=== PATIENT | female | born 1990 | race Caucasian/White ===

== ENCOUNTER 2017-01-09 12:13 | Emergency (ER) | payer BC ==
[~2017-01-09] VITALS: Ht 162.6 cm; Wt 60.0 kg
[2017-01-09 12:13] VITALS: BP 109/52; PULSE 75; RESP 20; TEMP 98; O2SAT 98
[2017-01-09] MEDS ORDERED: SODIUM CHLORIDE 0.9% FLUSH 10 ML FLUSH IV FLUSH PRN (12:45)
[2017-01-09] MEDS ORDERED: ONDANSETRON HCL 4 MG/2 ML VIAL IVP ONE (12:45)
[2017-01-09] MEDS ORDERED: KETOROLAC TROMETHAMINE 30 MG/ML (IVP) VIAL IVP ONE (12:45)
[2017-01-09] MEDS ORDERED: SODIUM CHLOR 0.9% 1000 ML INJ 1,000 ML IV SCH (12:45)
[2017-01-09] MEDS ORDERED: ONDANSETRON ODT 4 MG TAB PO ONE (13:30)
[2017-01-09] MEDS ORDERED: NAPROXEN 500 MG TAB PO ONE (13:30)
[2017-01-09 13:42] LABS: AUTOMATED NEUTROPHIL # 3.9 TH/MM3 (1.8-7.7); BASOPHIL % 0.5 % (0.0-2.0); EOSINOPHIL # 0.1 TH/MM3 (0-0.4); HEMO FLAGS DIFF FINAL; LYMPHOCYTE # 2.4 TH/MM3 (1.0-4.8); MEAN CELL VOLUME 88.6 FL (80.0-100.0); MEAN CORPUSCULAR HEMOGLOBIN 28.9 PG (27.0-34.0); MEAN CORPUSCULAR HGB CONC 32.6 % (32.0-36.0); MONO % 6.9 % (0.0-8.0); NEUT % 56.6 % (16.0-70.0); PLATELET COUNT 220 TH/MM3 (150-450); RED BLOOD COUNT 4.06 MIL/MM3 (4.00-5.30); RED CELL DISTRIBUTION WIDTH 12.7 % (11.6-17.2); WHITE BLOOD COUNT 6.8 TH/MM3 (4.0-11.0)
--- NOTE | 2017-01-09 13:45 | PD ---
HPI Chief Complaint: Abdominal Pain Time Seen by Provider: 12:24 Travel History International Travel<30 days: No Contact w/Intl Traveler<30days: No Traveled to known affect area: No History of Present Illness HPI To 26-year-old woman who presents to the emergency department complaining of abdominal pain. She reports that she has right sided abdominal pain started abruptly is been ongoing for the past several days. Worse today. She's had nausea vomiting weakness with it. I further discussion it sounds like she's had abdominal pain bad enough her to come to the emergency room about once a month or so for the past couple years. She had multiple diagnoses in the past including endometriosis which she's had laser surgery, pain from her IUD, as well as other pains that have not been figured out. She states this pain is different than all the other times she's had pain in the past. She denies any urinary symptoms. No fevers or chills. She does feel very weak and nauseous. She is worried she may have appendicitis or kidney stones. She states her IUD helped a lot with her endometriosis but then had it taken out due to abdominal pain. She's had about for the past year or so. She sexually active one male partner. Active. History Past Medical History Medical History: Denies Significant Hx Tetanus Vaccination: > 5 Years Influenza Vaccination: No LMP: 01/05/17 Social History Alcohol Use: No Tobacco Use: No Allergies-Medications (Allergen,Severity, Reaction): Coded Allergies: No Known Allergies (Unverified , 01/09/17) Reported Meds & Prescriptions Reported Meds & Active Scripts Active No Active Prescriptions or Reported Medications Review of Systems Except as stated in HPI: all other systems reviewed are Neg Physical Exam Narrative GENERAL: 26 year-old woman, sad and tearful, no acute distress. SKIN: Focused skin assessment warm/dry. HEAD: Atraumatic. Normocephalic. EYES: Pupils equal and round. No scleral icterus. No injection or drainage. ENT: No nasal bleeding or discharge. Mucous membranes pink and moist. NECK: Trachea midline. No JVD. CARDIOVASCULAR: Regular rate and rhythm. No murmur appreciated. RESPIRATORY: No accessory muscle use. Clear to auscultation. Breath sounds equal bilaterally. GASTROINTESTINAL: Abdomen flat and soft. No significant tenderness. MUSCULOSKELETAL: No obvious deformities. Data Data Last Documented VS Vital Signs Date Time Temp Pulse Resp B/P Pulse Ox O2 Delivery O2 Flow Rate FiO2 01/09/17 12:37 18 01/09/17 12:13 98.0 75 109/52 98 Room Air Orders Complete Blood Count With Diff (01/09/17 12:45) Comprehensive Metabolic Panel (01/09/17 12:45) Lipase (01/09/17 12:45) Urinalysis - C+S If Indicated (01/09/17 12:45) Iv Access Insert/Monitor (01/09/17 12:45) Ecg Monitoring (01/09/17 12:45) Oximetry (01/09/17 12:45) Ondansetron Inj (Zofran Inj) (01/09/17 12:45) Sodium Chlor 0.9% 1000 Ml Inj (Ns 1000 M (01/09/17 12:45) Sodium Chloride 0.9% Flush (Ns Flush) (01/09/17 12:45) Ketorolac Inj (Toradol Inj) (01/09/17 12:45) Ed Urine Pregnancytest Poc (01/09/17 12:45) Ondansetron Odt (Zofran Odt) (01/09/17 13:30) Naproxen (Naprosyn) (01/09/17 13:30) Labs Laboratory Tests Test 01/09/17 13:20 White Blood Count 6.8 TH/MM3 Red Blood Count 4.06 MIL/MM3 Hemoglobin 11.7 GM/DL Hematocrit 36.0 % Mean Corpuscular Volume 88.6 FL Mean Corpuscular Hemoglobin 28.9 PG Mean Corpuscular Hemoglobin 32.6 % Concent Red Cell Distribution Width 12.7 % Platelet Count 220 TH/MM3 Mean Platelet Volume 7.7 FL Neutrophils (%) (Auto) 56.6 % Lymphocytes (%) (Auto) 35.0 % Monocytes (%) (Auto) 6.9 % Eosinophils (%) (Auto) 1.0 % Basophils (%) (Auto) 0.5 % Neutrophils # (Auto) 3.9 TH/MM3 Lymphocytes # (Auto) 2.4 TH/MM3 Monocytes # (Auto) 0.5 TH/MM3 Eosinophils # (Auto) 0.1 TH/MM3 Basophils # (Auto) 0.0 TH/MM3 CBC Comment DIFF FINAL Differential Comment Sodium Level 137 MEQ/L Potassium Level 3.6 MEQ/L Chloride Level 105 MEQ/L Carbon Dioxide Level 25.3 MEQ/L Anion Gap 7 MEQ/L Blood Urea Nitrogen 10 MG/DL Creatinine 0.92 MG/DL Estimat Glomerular Filtration 74 ML/MIN Rate Random Glucose 82 MG/DL Calcium Level 9.2 MG/DL Total Bilirubin 0.2 MG/DL Aspartate Amino Transf 13 U/L (AST/SGOT) Alanine Aminotransferase 18 U/L (ALT/SGPT) Alkaline Phosphatase 45 U/L Total Protein 7.9 GM/DL Albumin 4.1 GM/DL Lipase 159 U/L [facility] Medical Decision Making Medical Screen Exam Complete: Yes Emergency Medical Condition: Yes Interpretation(s) LABS: CBC is unremarkable CMP unremarkable Lipase normal Differential Diagnosis Acute on chronic abdominal pain, abdominal migraine, endometriosis, appendicitis , kidney stones, other Narrative Course Medical decision making the parents 26 year-old woman presents emergency Department with abdominal pain. She has frequent abdominal pains. She worried this may be something new. She looks well. She is benign exam. I think this is likely tied into her chronic abdominal pain. Chronic abdominal pains likely endometriosis but could be related to depression or some meditation, abdominal migraines, porphyria, other. Diagnosis Primary Impression: Chronic abdominal pain Additional Instructions: Use Zofran as needed for nausea and vomiting. Take Naprosyn as needed for pain. Follow-up with her primary physician for further evaluation. Med/Other Pt SpecificInfo: Prescription(s) given Scripts Ondansetron Odt (Zofran Odt)4 Mg Tab4 Mg SL Q8HR PRN (Nausea/Vomiting) #15 TAB May substitute non-ODT form. Prov:Zhen Bernstein MD 01/09/17 Naproxen (Naprosyn)500 Mg Thl764 Mg PO BID PRN (PAIN SCALE 1 TO 10) #20 TAB Prov:Zhen Bernstein MD 01/09/17 Disposition: 01 DISCHARGE HOME Condition: Stable Zhen Bernstein MD Jan 09, 2017 13:45
[2017-01-09 13:58] LABS: ANION GAP 7 MEQ/L (5-15); AST (GOT) 13 U/L (15-37); BICARBONATE 25.3 MEQ/L (21.0-32.0); BLOOD UREA NITROGEN 10 MG/DL (7-18); CHLORIDE 105 MEQ/L (98-107); GLOMERULAR FILTRATION RATE 74 ML/MIN (>89); POTASSIUM 3.6 MEQ/L (3.5-5.1); SODIUM (NA) 137 MEQ/L (136-145)
[2017-01-09 13:59] LABS: ALT (GPT) 18 U/L (10-53)
[2017-01-09 14:01] LABS: ALKALINE PHOSPHATASE 45 U/L (45-117); TOTAL BILIRUBIN ADULT 0.2 MG/DL (0.2-1.0)
[2017-01-09] MEDS ORDERED: ZOFR4TAB3 SL (14:57)
[2017-01-09] MEDS ORDERED: NAPR500 PO (14:57)
== END 2017-01-09 15:53 | disposition home or self-care (01) ==
LOC: NEPD 12:13
DX: R10.9 Unspecified abdominal pain (principal); G89.29 Other chronic pain; R11.2 Nausea with vomiting, unspecified; R53.1 Weakness
CPT/HCPCS: 80053; 83690; 85025; 99284